=== PATIENT | male | born 1945 | race African-American/Black ===

== ENCOUNTER 2017-03-01 11:20 | Observation (INO) | payer OTHER ==
--- NOTE | 2017-03-01 11:45 | PDOC ---
History of Present Illness - General History Source: Patient, EMS, [facility] Records Exam Limitations: Other (very lethargic) - History of Present Illness Initial Comments: 03/01/17 13:02 The patient is a 71 year old male with past medical history of hypertension, hyperlipidemia, diabetes, CHF, depression and anxiety who arrives to the ED via EMS from [facility] with complaints of chest pain. As per detention, the patient had been complaining of persistent chest pain since this morning and refused to eat breakfast which is not typical of him. Their nurse practitioner had evaluated the patient and advised that he is brought to the ED. En route to the ED, the patient received a sublingual nitro and baby aspirin. No further history can be obtained. PCP: Elgin Desouza <Kaylee Romero - Last Filed: 03/01/17 19:01> <Padmini Franco - Last Filed: 03/01/17 20:22> <Brandon Mueller - Last Filed: 03/04/17 08:16> - General Chief Complaint: Chest Pain Stated Complaint: CHEST PAIN Time Seen by Provider: 03/01/17 11:45 Past History <Kaylee Romero - Last Filed: 03/01/17 19:01> <Padmini Franco - Last Filed: 03/01/17 20:22> - Past Medical History Diabetes: Yes GI Disorders: Yes (GERD) HTN: Yes Hypercholesterolemia: Yes Psychiatric Problems: Yes - Psycho/Social/Smoking Cessation Hx Suicidal Ideation: No Smoking History: Unknown if ever smoked <Brandon Mueller - Last Filed: 03/04/17 08:16> - Past Medical History Allergies/Adverse Reactions: Allergies Allergy/AdvReac Type Severity Reaction Status Date / Time No Known Allergies Allergy Verified 03/01/17 11:38 Home Medications: Ambulatory Orders Aspirin [ASA -] 81 mg PO DAILY 03/01/17 Bacitracin 28 gm TP BID 03/01/17 Carvedilol 12.5 mg PO DAILY 03/01/17 Citalopram Hydrobromide [Celexa -] 10 mg PO DAILY 03/01/17 Doxycycline Hyclate 100 mg PO BID 03/01/17 Furosemide [Lasix -] 40 mg PO DAILY 03/01/17 Insulin Glargine,Hum.rec.anlog [Lantus Solostar PEN (NF)] 14 units SQ HS Insulin Lispro [Humalog] 0 unit SQ ASDIR 03/01/17 Lorazepam [Ativan] 0.5 mg PO TID 03/01/17 Losartan Potassium 25 mg PO DAILY 03/01/17 Metformin HCl 500 mg PO BID 03/01/17 Nitroglycerin [Nitrostat] 0.4 mg SL ASDIR PRN 03/01/17 Pantoprazole Sodium [Protonix -] 20 mg PO DAILY 03/01/17 Quetiapine Fumarate [Seroquel -] 25 mg PO Q12H 03/01/17 Sitagliptin Phosphate [Januvia] 100 mg PO DAILY 03/01/17 Spironolactone 25 mg PO DAILY 03/01/17 Vitamin B Comp W-C [Nephro-Bernardo -] 1 tablet PO DAILY 03/01/17 Review of Systems - Review of Systems Able to Perform ROS?: Yes Comments:: 03/01/17 13:02 GENERAL/CONSTITUTIONAL: No fever or chills. No weakness. HEAD, EYES, EARS, NOSE AND THROAT: No change in vision. No ear pain or discharge. No sore throat. CARDIOVASCULAR: Present: chest pain No shortness of breath. RESPIRATORY: No cough, wheezing, or hemoptysis. GASTROINTESTINAL: No nausea, vomiting, diarrhea or constipation. GENITOURINARY: No dysuria, frequency, or change in urination. MUSCULOSKELETAL: No joint or muscle swelling or pain. No neck or back pain. SKIN: No rash NEUROLOGIC: No headache, vertigo, loss of consciousness, or change in strength/ sensation. ENDOCRINE: No increased thirst. No abnormal weight change. HEMATOLOGIC/LYMPHATIC: No anemia, easy bleeding, or history of blood clots. ALLERGIC/IMMUNOLOGIC: No hives or skin allergy. All Other Systems: Reviewed and Negative <Kaylee Romero - Last Filed: 03/01/17 19:01> *Physical Exam - Vital Signs Last Vital Signs Temp Pulse Resp BP Pulse Ox 97.6 F 87 18 131/82 100 03/01/17 11:32 03/01/17 11:32 03/01/17 11:32 03/01/17 11:32 03/01/17 11:32 - Physical Exam Comments: 03/01/17 13:03 GENERAL: Awake, alert, and fully oriented, in no acute distress HEAD: No signs of trauma EYES: PERRLA, EOMI, sclera anicteric, conjunctiva clear ENT: Auricles normal inspection, hearing grossly normal, nares patent, oropharynx clear without exudates. Moist mucosa NECK: Normal ROM, supple, no lymphadenopathy, JVD, or masses LUNGS: Breath sounds equal, clear to auscultation bilaterally. No wheezes, and no crackles HEART: Regular rate and rhythm, normal S1 and S2, II/ systolic ejection murmur , no rubs or gallops ABDOMEN: Soft, nontender, normoactive bowel sounds. No guarding, no rebound. No masses EXTREMITIES: Normal range of motion, no edema. No clubbing or cyanosis. No cords, erythema, or tenderness NEUROLOGICAL: Cranial nerves II through XII grossly intact. Multiple contractures, unable to asses gait. SKIN: Warm, Dry, normal turgor, no rashes or lesions noted. <Kaylee Romero - Last Filed: 03/01/17 19:01> - Vital Signs Last Vital Signs Temp Pulse Resp BP Pulse Ox 97.6 F 85 18 153/72 100 03/01/17 11:32 03/01/17 18:17 03/01/17 18:17 03/01/17 18:17 03/01/17 18:17 <Padmini Franco - Last Filed: 03/01/17 20:22> - Vital Signs Last Vital Signs Temp Pulse Resp BP Pulse Ox 97.6 F 87 18 131/82 100 03/01/17 11:32 03/01/17 11:32 03/01/17 11:32 03/01/17 11:32 03/01/17 11:32 <Brandon Mueller - Last Filed: 03/04/17 08:16> Heart Score/ECG Review - ECG Intrepretation Comment:: 03/01/17 13:04 ECG obtained at 11:31 Normal sinus at 88 bpm. Possible left atrial enlargment, left ventricular hypertrophy with repolarization abnormality. <Kaylee Romero - Last Filed: 03/01/17 19:01> ED Treatment Course - LABORATORY CBC & Chemistry Diagram: 03/01/17 12:13 03/01/17 12:13 - ADDITIONAL ORDERS Additional order review: Laboratory Results 03/01/17 12:13 B-Natriuretic Peptide Cancelled Lipase Cancelled 03/01/17 12:13 RBC 4.05 MCV 89.0 MCHC 32.8 RDW 15.0 MPV 9.1 Neutrophils % 59.6 Lymphocytes % 27.7 Monocytes % 11.4 H Eosinophils % 0.8 Basophils % 0.5 <Kaylee Romero - Last Filed: 03/01/17 19:01> - LABORATORY CBC & Chemistry Diagram: 03/01/17 12:13 03/01/17 12:13 - ADDITIONAL ORDERS Additional order review: Laboratory Results 03/01/17 03/01/17 03/01/17 18: 16:11 12:13 INR Sodium Potassium Chloride Carbon Dioxide Anion Gap BUN Creatinine Creat Clearance w eGFR Random Glucose Lactic Acid 1.8 Calcium Magnesium Total Bilirubin AST ALT Alkaline Phosphatase Creatine Kinase 174 Creatine Kinase Index 2.2 CK-MB (CK-2) 3.925 H Troponin I 0.07 H B-Natriuretic Peptide Total Protein Albumin Lipase Urine Color Ltyellow Urine Appearance Clear Urine pH 5.0 Urine Protein Negative Urine Glucose (UA) 3+ H Urine Ketones Negative Urine Blood Negative Urine Nitrite Negative Urine Bilirubin Negative Urine Urobilinogen Negative Ur Leukocyte Esterase Negative Blood Type Antibody Screen 03/01/17 03/01/17 03/01/17 12:13 12:13 12:13 INR Sodium 142 Potassium 5.0 Chloride 105 Carbon Dioxide 28 Anion Gap 9 BUN 18 Creatinine 1.1 Creat Clearance w eGFR > 60 Random Glucose 142 H Lactic Acid Calcium 9.3 Magnesium 2.1 Total Bilirubin 0.3 AST 24 ALT 21 Alkaline Phosphatase 68 Creatine Kinase 197 Creatine Kinase Index 1.7 CK-MB (CK-2) 3.409 Troponin I 0.07 H B-Natriuretic Peptide Cancelled 4907.13 H Total Protein 6.9 Albumin 3.2 L Lipase Cancelled Urine Color Urine Appearance Urine pH Urine Protein Urine Glucose (UA) Urine Ketones Urine Blood Urine Nitrite Urine Bilirubin Urine Urobilinogen Ur Leukocyte Esterase Blood Type O POSITIVE Antibody Screen Negative 03/01/17 12:13 INR 1.11 Sodium Potassium Chloride Carbon Dioxide Anion Gap BUN Creatinine Creat Clearance w eGFR Random Glucose Lactic Acid Calcium Magnesium Total Bilirubin AST ALT Alkaline Phosphatase Creatine Kinase Creatine Kinase Index CK-MB (CK-2) Troponin I B-Natriuretic Peptide Total Protein Albumin Lipase Urine Color Urine Appearance Urine pH Urine Protein Urine Glucose (UA) Urine Ketones Urine Blood Urine Nitrite Urine Bilirubin Urine Urobilinogen Ur Leukocyte Esterase Blood Type Antibody Screen 03/01/17 12:13 RBC 4.05 MCV 89.0 MCHC 32.8 RDW 15.0 MPV 9.1 Neutrophils % 59.6 Lymphocytes % 27.7 Monocytes % 11.4 H Eosinophils % 0.8 Basophils % 0.5 - Medications Given in the ED: ED Medications Discontinued Medications Generic Name Dose Route Start Last Admin Trade Name Laura PRN Reason Stop Dose Admin Acetaminophen 1,000 mg 03/01/17 15:44 03/01/17 16:05 Ofirmev Injection - IVPB 03/01/17 15:45 1,000 mg ONCE ONE Administration Aspirin 162 mg 03/01/17 12:01 03/01/17 12:56 Asa - PO 03/01/17 12:02 162 mg ONCE ONE Administration Sodium Chloride 500 mls @ 500 mls/hr 03/01/17 12:01 03/01/17 12:56 Normal Saline - IV 03/01/17 13:00 500 mls/hr ASDIR STA Administration Morphine Sulfate 2 mg 03/01/17 12:01 03/01/17 12:56 Morphine Injection - IVPUSH 03/01/17 12:02 2 mg ONCE ONE Administration <Padmini Franco - Last Filed: 03/01/17 20:22> - LABORATORY CBC & Chemistry Diagram: 03/02/17 07:35 03/02/17 07:35 <Brandon Mueller - Last Filed: 03/04/17 08:16> Medical Decision Making - Medical Decision Making 03/01/17 19:01 Phone call placed to patient's PCP, Dr. Desouza. Awaiting call back <Kaylee Romero - Last Filed: 03/01/17 19:01> - Medical Decision Making 03/01/17 20:19 Second call placed to Dr. Desouza. As per Dr. Desouza's office, Dr. Desou[facility]. <Padmini Franco - Last Filed: 03/01/17 20:22> *DC/Admit/Observation/Transfer - Attestations Scribe Attestion: 03/01/17 13:05 Documentation prepared by Kaylee Romero, acting as medical sales associate for Brandon Mueller DO. <Kaylee Romero - Last Filed: 03/01/17 19:01> <Padmini Franco - Last Filed: 03/01/17 20:22> - Attestations Physician Attestion: 03/01/17 11:45 I, Dr. Brandon Mueller, attest that this document has been prepared under my direction and personally reviewed by me in its entirety. I further attest, that it accurately reflects all work, treatment, procedures and medical decision -making performed by me. <Brandon Mueller - Last Filed: 03/04/17 08:16> Diagnosis at time of Disposition: Chest pain in adult - Referrals
[2017-03-01] MEDS ORDERED: SODIUM CHLORIDE 500 ML IV STA (12:01)
[2017-03-01] MEDS ORDERED: ASPIRIN 81 MG CHEWABLE TABLETS PO ONE (12:01)
[2017-03-01] MEDS ORDERED: NITROGLYCERIN SUBLINGUAL 1/150 0.4 MG TAB SL PRN (12:01)
[2017-03-01] MEDS ORDERED: morphine CARPU-JECT 4 MG/1 ML DISP.SYRIN IVPUSH ONE ×3 (12:01→23:56)
[2017-03-01 12:41] LABS: BASOPHIL 0.5 % (0-2.0); EOSINOPHIL 0.8 % (0-4.5); MCH 29.2 pg (25.7-33.7); MCHC 32.8 g/dl (32.0-35.9); MEAN PLT VOLUME 9.1 fl (7.5-11.1); NEUTROPHILS 59.6 % (42.8-82.8); PLATELET COUNT 160 K/MM3 (134-434)
[2017-03-01] MEDS ORDERED: ASPIRIN 81 MG CHEWABLE TABLETS ONE (12:45)
[2017-03-01] MEDS ORDERED: morphine CARPU-JECT 2 MG/1 ML DISP.SYRIN ONE ×2 (12:45→20:45)
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
[2017-03-01 13:11] LABS: INR 1.11 (0.82-1.09); PROTHROMBIN TIME (PATIENT) 12.2 SEC (9.98-11.88)
--- NOTE | 2017-03-01 13:37 | EKG ---
Test Reason : Blood Pressure : / mmHG Vent. Rate : 088 BPM Atrial Rate : 088 BPM P-R Int : 136 ms QRS Dur : 088 ms QT Int : 372 ms P-R-T Axes : 063 032 201 degrees QTc Int : 450 ms NORMAL SINUS RHYTHM POSSIBLE LEFT ATRIAL ENLARGEMENT LEFT VENTRICULAR HYPERTROPHY WITH REPOLARIZATION ABNORMALITY ABNORMAL ECG NO PREVIOUS ECGS AVAILABLE Confirmed by RANJIT CADE MD ([id number]) on 03/01/2017 1:36:36 PM Referred By: Confirmed By:RANJIT CADE MD
[2017-03-01 14:57] LABS: ALBUMIN 3.2 g/dl (3.4-5.0); ANION GAP 9 (8-16); BILIRUBIN,TOTAL 0.3 mg/dL (0.2-1.0); CALCIUM 9.3 mg/dL (8.5-10.1); CO2 28 mmol/L (21-32); CREATININE 1.1 mg/dL (0.7-1.3); GLUCOSE,RANDOM 142 mg/dL (74-106); MAGNESIUM 2.1 mg/dL (1.8-2.4); SGOT/AST 24 U/L (15-37); SGPT/ALT 21 U/L (12-78); TOT PROT 6.9 g/dl (6.4-8.2)
[2017-03-01 15:01] LABS: ALK PHOS 68 U/L (45-117); CPK 197 IU/L (39-308); TROPONIN I 0.07 ng/ml (0.00-0.05)
[2017-03-01] MEDS ORDERED: ACETAMINOPHEN 1000 MG/100 ML VIAL (NON FORMULARY) IVPB ONE (15:44)
[2017-03-01] MEDS ORDERED: ACETAMINOPHEN INJECTION 100 ML IVPB ONE (15:48)
[2017-03-01 16:25] LABS: URINE APPEARANCE CLEAR; URINE BILIRUBIN NEGATIVE (NEGATIVE); URINE BLOOD NEGATIVE (NEGATIVE); URINE COLOR LTYELLOW; URINE GLUCOSE (UA) 3+ (NEGATIVE); URINE KETONE NEGATIVE (NEGATIVE); URINE LEUK ESTERASE NEGATIVE (NEGATIVE); URINE NITRITE NEGATIVE (NEGATIVE); URINE PROTEIN NEGATIVE (NEGATIVE); URINE UROBILINOGEN NEGATIVE mg/dL (0.2-1.0)
[2017-03-01 18:58] LABS: TROPONIN I 0.07 ng/ml (0.00-0.05)
--- NOTE | 2017-03-01 21:27 | HP ---
CHIEF COMPLAINT: Chest Pain PCP: Dr. Pj Desouza HISTORY OF PRESENT ILLNESS: This is a 71 y/o man with a past medical history of HTN, HLD, DM, CHF, Depression, Anxiety, Dementia (per [place] records). Who presents to the ED from the [facility] for chest pain since Thursday am. Patient has Dementia unable to provide HPI. Per ED record: As per senior living, the patient had been complaining of persistent chest pain since this morning and refused to eat breakfast which is not typical of him. Their nurse practitioner had evaluated the patient and advised that he is brought to the ED. En route to the ED, the patient received a sublingual nitro and baby aspirin. No further history can be obtained. ER course was notable for: (1) Trop I- 0.07 (2) EKG- NSR possible left atrial enlargement, LVH, with repolarization abnormality (3) BNP- 4900 Recent Travel: None PAST MEDICAL HISTORY: See HPI PAST SURGICAL HISTORY: Social History: Smoking: Unknown Alcohol: Unknown Drugs: Unknown Resides at [facility] Family History: Unable to obtain Allergies No Known Allergies Allergy (Verified 03/01/17 11:38) HOME MEDICATIONS: Home Medications Medication Instructions Recorded Aspirin [ASA -] 81 mg PO DAILY 03/01/17 Bacitracin 28 gm TP BID 03/01/17 Carvedilol 12.5 mg PO DAILY 03/01/17 Citalopram Hydrobromide [Celexa -] 10 mg PO DAILY 03/01/17 Doxycycline Hyclate 100 mg PO BID 03/01/17 Furosemide [Lasix -] 40 mg PO DAILY 03/01/17 Insulin Glargine,Hum.rec.anlog 14 units SQ HS 03/01/17 [Lantus Solostar PEN (NF)] Insulin Lispro [Humalog] 0 unit SQ ASDIR 03/01/17 Lorazepam [Ativan] 0.5 mg PO TID 03/01/17 Losartan Potassium 25 mg PO DAILY 03/01/17 Metformin HCl 500 mg PO BID 03/01/17 Nitroglycerin [Nitrostat] 0.4 mg SL ASDIR PRN 03/01/17 Pantoprazole Sodium [Protonix -] 20 mg PO DAILY 03/01/17 Quetiapine Fumarate [Seroquel -] 25 mg PO BID 03/01/17 Sitagliptin Phosphate [Januvia] 100 mg PO DAILY 03/01/17 Spironolactone 25 mg PO DAILY 03/01/17 Vitamin B Comp W-C [Nephro-Bernardo -] 1 tablet PO DAILY 03/01/17 REVIEW OF SYSTEMS Unable to perform CONSTITUTIONAL: Absent: fever, chills, diaphoresis, generalized weakness, malaise, loss of appetite, weight change HEENT: Absent: rhinorrhea, nasal congestion, throat pain, throat swelling, difficulty swallowing, mouth swelling, ear pain, eye pain, visual changes CARDIOVASCULAR: Absent: chest pain, syncope, palpitations, irregular heart rate, lightheadedness , peripheral edema RESPIRATORY: Absent: cough, shortness of breath, dyspnea with exertion, orthopnea, wheezing, stridor, hemoptysis GASTROINTESTINAL: Absent: abdominal pain, abdominal distension, nausea, vomiting, diarrhea, constipation, melena, hematochezia GENITOURINARY: Absent: dysuria, frequency, urgency, hesitancy, hematuria, flank pain, genital pain MUSCULOSKELETAL: Absent: myalgia, arthralgia, joint swelling, back pain, neck pain SKIN: Absent: rash, itching, pallor HEMATOLOGIC/IMMUNOLOGIC: Absent: easy bleeding, easy bruising, lymphadenopathy, frequent infections ENDOCRINE: Absent: unexplained weight gain, unexplained weight loss, heat intolerance, cold intolerance NEUROLOGIC: Absent: headache, focal weakness or paresthesias, dizziness, unsteady gait, seizure, mental status changes, bladder or bowel incontinence PSYCHIATRIC: Absent: anxiety, depression, suicidal or homicidal ideation, hallucinations. PHYSICAL EXAMINATION Vital Signs - 24 hr 03/01/17 03/01/17 03/01/17 11:32 15:11 18:17 Temperature 97.6 F Pulse Rate 87 Pulse Rate [ 88 85 Right Radial] Respiratory 18 18 18 Rate Blood Pressure 131/82 Blood Pressure 149/70 153/72 [Left Arm] O2 Sat by Pulse 100 100 100 Oximetry (%) GENERAL: Lethargic, oriented to name only, in no acute distress. HEAD: Normal with no signs of trauma. EYES: Pupils equal, round and reactive to light, extraocular movements intact, sclera anicteric, conjunctiva clear. No lid lag. EARS, NOSE, THROAT: Ears normal, nares patent, oropharynx clear without exudates. Dry mucous membranes. NECK: Normal range of motion, supple without lymphadenopathy, JVD, or masses. LUNGS: Breath sounds equal, clear to auscultation bilaterally. No wheezes, and no crackles. No accessory muscle use. HEART: Regular rate and rhythm, normal S1 and S2 without murmur, rub or gallop. ABDOMEN: Soft, nontender, not distended, normoactive bowel sounds, no guarding, no rebound, no masses. No hepatomegaly or splenomegaly. MUSCULOSKELETAL: Normal range of motion at all joints. No bony deformities or tenderness. No CVA tenderness. UPPER EXTREMITIES: 2+ pulses, warm, well-perfused. No cyanosis. No clubbing. No peripheral edema. LOWER EXTREMITIES: 2+ pulses, warm, well-perfused. No calf tenderness. No peripheral edema. NEUROLOGICAL: Cranial nerves II-XII intact. Normal speech. Gait not observed. PSYCHIATRIC: Cooperative. Limited eye contact. Appropriate mood and affect. SKIN: Warm, dry, normal turgor, no rashes, normal capillary refill. scabbed lesions to lower legs noted Laboratory Results - last 24 hr 03/01/17 03/01/17 03/01/17 12:13 12:13 12:13 WBC 7.0 RBC 4.05 Hgb 11.8 Hct 36.1 MCV 89.0 MCH 29.2 MCHC 32.8 RDW 15.0 Plt Count 160 MPV 9.1 Neutrophils % 59.6 Lymphocytes % 27.7 Monocytes % 11.4 H Eosinophils % 0.8 Basophils % 0.5 INR 1.11 Sodium 142 Potassium 5.0 Chloride 105 Carbon Dioxide 28 Anion Gap 9 BUN 18 Creatinine 1.1 Creat Clearance w eGFR > 60 Random Glucose 142 H Lactic Acid Calcium 9.3 Magnesium 2.1 Total Bilirubin 0.3 AST 24 ALT 21 Alkaline Phosphatase 68 Creatine Kinase 197 Creatine Kinase Index 1.7 CK-MB (CK-2) 3.409 Troponin I 0.07 H B-Natriuretic Peptide 4907.13 H Total Protein 6.9 Albumin 3.2 L Lipase Urine Color Urine Appearance Urine pH Ur Specific [place] Urine Protein Urine Glucose (UA) Urine Ketones Urine Blood Urine Nitrite Urine Bilirubin Urine Urobilinogen Ur Leukocyte Esterase Blood Type Antibody Screen 03/01/17 03/01/17 03/01/17 12:13 12:13 12:13 WBC RBC Hgb Hct MCV MCH MCHC RDW Plt Count MPV Neutrophils % Lymphocytes % Monocytes % Eosinophils % Basophils % INR Sodium Potassium Chloride Carbon Dioxide Anion Gap BUN Creatinine Creat Clearance w eGFR Random Glucose Lactic Acid 1.8 Calcium Magnesium Total Bilirubin AST ALT Alkaline Phosphatase Creatine Kinase Creatine Kinase Index CK-MB (CK-2) Troponin I B-Natriuretic Peptide Cancelled Total Protein Albumin Lipase Cancelled Urine Color Urine Appearance Urine pH Ur Specific [place] Urine Protein Urine Glucose (UA) Urine Ketones Urine Blood Urine Nitrite Urine Bilirubin Urine Urobilinogen Ur Leukocyte Esterase Blood Type O POSITIVE Antibody Screen Negative 03/01/17 03/01/17 16:11 18:17 WBC RBC Hgb Hct MCV MCH MCHC RDW Plt Count MPV Neutrophils % Lymphocytes % Monocytes % Eosinophils % Basophils % INR Sodium Potassium Chloride Carbon Dioxide Anion Gap BUN Creatinine Creat Clearance w eGFR Random Glucose Lactic Acid Calcium Magnesium Total Bilirubin AST ALT Alkaline Phosphatase Creatine Kinase 174 Creatine Kinase Index 2.2 CK-MB (CK-2) 3.925 H Troponin I 0.07 H B-Natriuretic Peptide Total Protein Albumin Lipase Urine Color Ltyellow Urine Appearance Clear Urine pH 5.0 Ur Specific [place] 1.025 Urine Protein Negative Urine Glucose (UA) 3+ H Urine Ketones Negative Urine Blood Negative Urine Nitrite Negative Urine Bilirubin Negative Urine Urobilinogen Negative Ur Leukocyte Esterase Negative Blood Type Antibody Screen Heart Score/ECG Review - ECG Intrepretation Comment:: 03/01/17 13:04 ECG obtained at 11:31 Normal sinus at 88 bpm. Possible left atrial enlargment, left ventricular hypertrophy with repolarization abnormality. - RADIOLOGY Chest X-Ray Result: Other (No acute pathology) Radiograph Interpretation: 03/01/17 13:51 [id number] RAD/CHEST X-RAY PORTABLE* Chest: Chest pain A single view the chest reveals scoliosis with convexity to the right, elevated left hemidiaphragm , unfolded ascending and descending aorta, normal justen and prominent heart. The lungs are clear. The angles are sharp. Acute chest process is not seen. There are no prior studies for comparison. Impression : No acute pathology. See discussion above. ASSESSMENT/PLAN: This is a 71 y/o male with a PMHx of: HTN, CHF, HLD, DM, Depression, Anxiety. Placed in Tele Observation for Chest Pain r/o ACS for further evaluation of their emergent condition. Impression: 1. Chest Pain r/o ACS - Per senior living records, patient has Dementia hx - Cardiac Monitoring - HEART Score 6 - EKG- reviewed, no avail study to compare - Serial Enzymes, sets x2 mildly elevated - Appreciate Cardiology Consult - Asa, NTG sl given by EMS - Continue Asa, BB with parameters - NTG prn - Echo- check LVSF 2. Hypertension - Controlled - Continue home meds - Monitor renal function 3. CHF - Stable - Chest Xray- no acute pathology - BNP 4900, no avail data to compare - Continue Lasix - Monitor BMP - Monitor vitals - O2 prn 4. Diabetes Mellitus - BGMs - ISS - Will hold home meds for now secondary to elevated LA 5. HLD - Lipid Panel in am - Will start low dose statin - Monitor LFTs 6. Anxiety and Depression - Continue home meds - Fall Precautions 7. Abnormal Lab Result - Per lab result from the senior living, + urine culture >100,000 MRSA positive - Patient was started on Doxycycline per JENNIFER - Placed on Contact Precautions - Urinalysis obtained - Urine Culture-pending - Will continue Doxycycline 8. DVT Prophylaxis - SCDs - Lovenox SQ Requires Inpatient Care Problem List - Problem (1) Chest pain Code(s): R07.9 - CHEST PAIN, UNSPECIFIED (2) CHF (congestive heart failure) Code(s): I50.9 - HEART FAILURE, UNSPECIFIED (3) HTN (hypertension) Code(s): I10 - ESSENTIAL (PRIMARY) HYPERTENSION (4) HLD (hyperlipidemia) Code(s): E78.5 - HYPERLIPIDEMIA, UNSPECIFIED (5) Diabetes mellitus Code(s): E11.9 - TYPE 2 DIABETES MELLITUS WITHOUT COMPLICATIONS (6) Depression Code(s): F32.9 - MAJOR DEPRESSIVE DISORDER, SINGLE EPISODE, UNSPECIFIED (7) Anxiety Code(s): F41.9 - ANXIETY DISORDER, UNSPECIFIED (8) DVT prophylaxis Code(s): RHC2301 - Visit type - Emergency Visit Emergency Visit: Yes ED Registration Date: 03/01/17 Care time: The patient presented to the Emergency Department on the above date and was hospitalized for further evaluation of their emergent condition. - New Patient This patient is new to me today: Yes Date on this admission: 03/01/17 - Critical Care Critical Care patient: No
[2017-03-02] MEDS ORDERED: morphine CARPU-JECT 10 MG/1 ML DISP.SYRIN ONE (00:17)
[2017-03-02 01:11] LABS: TROPONIN I 0.06 ng/ml (0.00-0.05)
[2017-03-02] MEDS: INSULIN SLIDING SCALE (NOVOLOG) 1 VIAL SQ SCH ×4 (06:32→21:10)
[2017-03-02 07:49] LABS: BASOPHIL 0.4 % (0-2.0); EOSINOPHIL 1.3 % (0-4.5); MCH 29.6 pg (25.7-33.7); MCHC 33.5 g/dl (32.0-35.9); MEAN CELL VOLUME 88.4 fl (80-96); MEAN PLT VOLUME 8.8 fl (7.5-11.1); PLATELET COUNT 155 K/MM3 (134-434); WHITE BLOOD COUNT 6.8 K/mm3 (4.0-10.0)
[2017-03-02 08:19] LABS: ANION GAP 5 (8-16); CALCIUM 9.1 mg/dL (8.5-10.1); CO2 32 mmol/L (21-32); CREATININE 1.1 mg/dL (0.7-1.3); GLUCOSE,RANDOM 204 mg/dL (74-106); MAGNESIUM 2.1 mg/dL (1.8-2.4); PHOSPHOROUS 3.4 mg/dL (2.5-4.9)
--- NOTE | 2017-03-02 10:06 | PN ---
Progress Note (short form) - Note Progress Note: This is a 71 y/o man with a past medical history of HTN, HLD, DM, CHF, Depression, Anxiety, Dementia (per [place] records). Who presents to the ED from the [facility] for chest pain since Thursday am. Patient has Dementia unable to provide HPI. Patient seen and examined. present by the bedside. C/O Pain on the anterior aspect of the chest wall. No associated shortness of breath, palpitation or dizziness. ER course was notable for: (1) Trop I- 0.07 (2) EKG- NSR possible left atrial enlargement, LVH, with repolarization abnormality (3) BNP- 4900 Recent Travel: None PAST MEDICAL HISTORY: See HPI PAST SURGICAL HISTORY: Social History: Smoking: Unknown Alcohol: Unknown Drugs: Unknown [facility]ides [facility] Family History: Unable to obtain Allergies No Known Allergies Allergy (Verified 03/01/17 11:38) HOME MEDICATIONS: Home Medications Medication Instructions Recorded Aspirin [ASA -] 81 mg PO DAILY 03/01/17 Bacitracin 28 gm TP BID 03/01/17 Carvedilol 12.5 mg PO DAILY 03/01/17 Citalopram Hydrobromide [Celexa -] 10 mg PO DAILY 03/01/17 Doxycycline Hyclate 100 mg PO BID 03/01/17 Furosemide [Lasix -] 40 mg PO DAILY 03/01/17 Insulin Glargine,Hum.rec.anlog 14 units SQ HS 03/01/17 [Lantus Solostar PEN (NF)] Insulin Lispro [Humalog] 0 unit SQ ASDIR 03/01/17 Lorazepam [Ativan] 0.5 mg PO TID 03/01/17 Losartan Potassium 25 mg PO DAILY 03/01/17 Metformin HCl 500 mg PO BID 03/01/17 Nitroglycerin [Nitrostat] 0.4 mg SL ASDIR PRN 03/01/17 Pantoprazole Sodium [Protonix -] 20 mg PO DAILY 03/01/17 Quetiapine Fumarate [Seroquel -] 25 mg PO BID 03/01/17 Sitagliptin Phosphate [Januvia] 100 mg PO DAILY 03/01/17 Spironolactone 25 mg PO DAILY 03/01/17 Vitamin B Comp W-C [Nephro-Bernardo -] 1 tablet PO DAILY 03/01/17 REVIEW OF SYSTEMS Unable to perform CONSTITUTIONAL: Absent: fever, chills, diaphoresis, generalized weakness, malaise, loss of appetite, weight change HEENT: Absent: rhinorrhea, nasal congestion, throat pain, throat swelling, difficulty swallowing, mouth swelling, ear pain, eye pain, visual changes CARDIOVASCULAR: Absent: chest pain, syncope, palpitations, irregular heart rate, lightheadedness , peripheral edema RESPIRATORY: Absent: cough, shortness of breath, dyspnea with exertion, orthopnea, wheezing, stridor, hemoptysis GASTROINTESTINAL: Absent: abdominal pain, abdominal distension, nausea, vomiting, diarrhea, constipation, melena, hematochezia GENITOURINARY: Absent: dysuria, frequency, urgency, hesitancy, hematuria, flank pain, genital pain MUSCULOSKELETAL: Absent: myalgia, arthralgia, joint swelling, back pain, neck pain SKIN: Absent: rash, itching, pallor HEMATOLOGIC/IMMUNOLOGIC: Absent: easy bleeding, easy bruising, lymphadenopathy, frequent infections ENDOCRINE: Absent: unexplained weight gain, unexplained weight loss, heat intolerance, cold intolerance NEUROLOGIC: Absent: headache, focal weakness or paresthesias, dizziness, unsteady gait, seizure, mental status changes, bladder or bowel incontinence PSYCHIATRIC: Absent: anxiety, depression, suicidal or homicidal ideation, hallucinations. PHYSICAL EXAMINATION Vital Signs Period Temp Pulse Resp BP Sys/Hoskins Pulse Ox Last 24 Hr 97.6 F-98.6 F 85-98 14-22 130-156/70-87 97-100 GENERAL: Lethargic, oriented to name only, in no acute distress. HEAD: Normal with no signs of trauma. EYES: Pupils equal, round and reactive to light, extraocular movements intact, sclera anicteric, conjunctiva clear. No lid lag. EARS, NOSE, THROAT: Ears normal, nares patent, oropharynx clear without exudates. Dry mucous membranes. NECK: Normal range of motion, supple without lymphadenopathy, JVD, or masses. LUNGS: Breath sounds equal, clear to auscultation bilaterally. No wheezes, and no crackles. No accessory muscle use. HEART: Regular rate and rhythm, normal S1 and S2 without murmur, rub or gallop. ABDOMEN: Soft, nontender, not distended, normoactive bowel sounds, no guarding, no rebound, no masses. No hepatomegaly or splenomegaly. MUSCULOSKELETAL: Normal range of motion at all joints. No bony deformities or tenderness. No CVA tenderness. UPPER EXTREMITIES: 2+ pulses, warm, well-perfused. No cyanosis. No clubbing. No peripheral edema. LOWER EXTREMITIES: 2+ pulses, warm, well-perfused. No calf tenderness. No peripheral edema. NEUROLOGICAL: Cranial nerves II-XII intact. Normal speech. Gait not observed. PSYCHIATRIC: Cooperative. Limited eye contact. Appropriate mood and affect. SKIN: Warm, dry, normal turgor, no rashes, normal capillary refill. scabbed lesions to lower legs noted CBC, BMP 03/02/17 07:35 03/02/17 07:35 Heart Score/ECG Review - ECG Intrepretation Comment:: 03/01/17 13:04 ECG obtained at 11:31 Normal sinus at 88 bpm. Possible left atrial enlargment, left ventricular hypertrophy with repolarization abnormality. - RADIOLOGY Chest X-Ray Result: Other (No acute pathology) Radiograph Interpretation: 03/01/17 13:51 [id number] RAD/CHEST X-RAY PORTABLE* Chest: Chest pain A single view the chest reveals scoliosis with convexity to the right, elevated left hemidiaphragm , unfolded ascending and descending aorta, normal justen and prominent heart. The lungs are clear. The angles are sharp. Acute chest process is not seen. There are no prior studies for comparison. Impression : No acute pathology. See discussion above. CTA: Left lateral 5th/6th acute fracture. 5 mm pulmonary nodule. ASSESSMENT/PLAN: This is a 71 y/o male with a PMHx of: HTN, CHF, HLD, DM, Depression, Anxiety. Placed in Tele Observation for Chest Pain r/o ACS for further evaluation of their emergent condition. Impression: 1. Chest Pain r/o ACS - Per [facility] records, patient has Dementia hx - Cardiac Monitoring - HEART Score 6 - EKG- reviewed, no avail study to compare - Serial Enzymes, sets x2 mildly elevated - Appreciate Cardiology Consult - Asa, NTG sl given by EMS - Continue Asa, BB with parameters - NTG prn - Echo- check LVSF - Awaiting cardiology follow up. - Left lateral 5th/6th acute fracture - H/O frequent falls. Pain could be Musculo-skeletal in nature 2. Hypertension - Controlled - Continue home meds - Monitor renal function 3. CHF - Stable - Chest Xray- no acute pathology - BNP 4900, no avail data to compare - Continue Lasix - Monitor BMP - Monitor vitals - O2 prn 4. Diabetes Mellitus - BGMs - ISS - a1c 10.1 - Patienty was on metformin 500 mg BID and januvia 100 mg daily. Held since admission. - Restart metformin 500 mg BID. - Endocrinology consulted. 5. HLD - Lipid Panel in am - Will start low dose statin - Monitor LFTs 6. Anxiety and Depression - Continue home meds - Fall Precautions 7. Abnormal Lab Result - Per lab result from the [facility], + urine culture >100,000 MRSA positive - Patient was started on Doxycycline per JENNIFER - Placed on Contact Precautions - Urinalysis obtained - Urine Culture-pending - Will continue Doxycycline 8. DVT Prophylaxis - SCDs - Lovenox SQ 9. Pulmonary nodule 5 mm left lobe Follow up CT scan in 6 months. 10. Acute left 5th/6th rib fracture. Could be the cause of chest pain if acs ruled out. tylenol prn. Requires Inpatient Care Case discussed in detail with . Will wait for cardiology input.
--- NOTE | 2017-03-02 10:30 | CONSULT ---
Consult - text type - Consultation Consultation Note: Cardiology atypical symptoms borderline troponins evaluate for CAD Echocardiogram nuclear stress test, if he can
[2017-03-02 11:04] VITALS: BMI 20.9
[2017-03-02] MEDS ORDERED: CITALOPRAM HYDROBROMIDE 10 MG TABLET (FP) ONE (11:38)
[2017-03-02] MEDS: ASPIRIN 81 MG CHEWABLE TABLETS PO SCH (11:46)
[2017-03-02] MEDS: SPIRONOLACTONE 25 MG TABLET (FP) PO SCH (11:46)
[2017-03-02] MEDS: FUROSEMIDE 40 MG TABLET (FP) PO SCH (11:47)
[2017-03-02] MEDS: LOSARTAN POTASSIUM 25 MG TABLET PO SCH (11:47)
[2017-03-02] MEDS: VITAMIN B COMP W-C 1 EA TABLET PO SCH (11:47)
[2017-03-02] MEDS: CITALOPRAM HYDROBROMIDE 10 MG TABLET (FP) PO SCH (11:47)
[2017-03-02] MEDS: ENOXAPARIN NA (PORCINE) 40 MG/0.4 ML DISP.SYRIN SQ SCH (11:47)
[2017-03-02] MEDS: PANTOPRAZOLE 20 MG TABLET (FP) PO SCH (11:47)
[2017-03-02] MEDS: BACITRACIN 15 GM TUBE TOPICAL OINTMENT TP SCH ×2 (11:47→21:10)
[2017-03-02] MEDS: QUEtiapine FUMARATE 25 MG TABLET (FP) PO SCH ×2 (11:48→21:10)
[2017-03-02] MEDS: DOXYCYCLINE HYCLATE 100 MG CAPSULE PO SCH ×2 (11:48→21:10)
[2017-03-02] MEDS ORDERED: metFORMIN HCL 500 MG TABLET (FP) ONE (17:56)
[2017-03-02] MEDS: metFORMIN HCL 500 MG TABLET (FP) PO SCH (18:00)
--- NOTE | 2017-03-02 18:26 | CONSULT ---
Consult - text type - Consultation Consultation Note: Cardiology 71 y/o man with a past medical history of HTN, HLD, DM, CHF, Depression, Anxiety , Dementia (per [place] records). Who presents to the ED from the [facility] for chest pain since Thursday am. Patient has Dementia unable to provide HPI. PE: vitals stable febrile mild HTN normal cardio-pulmonary exam abdomen soft no leg edema Impression: Echo mild LV dysfn, mod AR troponins 0.6; 0.[address] depression T inversions acute coronary syndrome can not be ruled out, but to several medical-mental conditions, will treat medically No evidence of CHF, even though BNP raised Rec: observe repeat troponins fever etiology will follow continue current meds mild diuresis
[2017-03-02] MEDS: ATORVASTATIN CA 10 MG TABLET (FP) PO SCH (21:10)
[2017-03-03] MEDS: metFORMIN HCL 500 MG TABLET (FP) PO SCH ×2 (06:28→17:24)
[2017-03-03] MEDS: INSULIN SLIDING SCALE (NOVOLOG) 1 VIAL SQ SCH ×4 (06:29→22:21)
[2017-03-03] MEDS ORDERED: PT OWN MED DRAWER 7, Y5N ONE ×2 (10:06→10:40)
[2017-03-03] MEDS: ENOXAPARIN NA (PORCINE) 40 MG/0.4 ML DISP.SYRIN SQ SCH (10:17)
[2017-03-03] MEDS: SPIRONOLACTONE 25 MG TABLET (FP) PO SCH (10:18)
[2017-03-03] MEDS: PANTOPRAZOLE 20 MG TABLET (FP) PO SCH (10:18)
[2017-03-03] MEDS: QUEtiapine FUMARATE 25 MG TABLET (FP) PO SCH ×2 (10:18→22:20)
[2017-03-03] MEDS: DOXYCYCLINE HYCLATE 100 MG CAPSULE PO SCH (10:18)
[2017-03-03] MEDS: VITAMIN B COMP W-C 1 EA TABLET PO SCH (10:18)
[2017-03-03] MEDS: ASPIRIN 81 MG CHEWABLE TABLETS PO SCH (10:18)
[2017-03-03] MEDS: CITALOPRAM HYDROBROMIDE 10 MG TABLET (FP) PO SCH (10:18)
[2017-03-03] MEDS: FUROSEMIDE 40 MG TABLET (FP) PO SCH (10:18)
[2017-03-03] MEDS: LOSARTAN POTASSIUM 25 MG TABLET PO SCH (10:18)
[2017-03-03] MEDS: BACITRACIN 15 GM TUBE TOPICAL OINTMENT TP SCH ×2 (10:25→22:21)
--- NOTE | 2017-03-03 15:42 | PN ---
Progress Note (short form) - Note Progress Note: Patient seen and examined. Still c/o anterior chest wall pain. Laying flat in bed. In no acute respiratory distress Denies shortness of breath, palpitation or dizziness. PAST MEDICAL HISTORY: See HPI PAST SURGICAL HISTORY: Social History: Smoking: Unknown Alcohol: Unknown Drugs: Unknown [facility]ides at [facility] Family History: Unable to obtain Allergies No Known Allergies Allergy (Verified 03/01/17 11:38) HOME MEDICATIONS: Home Medications Medication Instructions Recorded Aspirin [ASA -] 81 mg PO DAILY 03/01/17 Bacitracin 28 gm TP BID 03/01/17 Carvedilol 12.5 mg PO DAILY 03/01/17 Citalopram Hydrobromide [Celexa -] 10 mg PO DAILY 03/01/17 Doxycycline Hyclate 100 mg PO BID 03/01/17 Furosemide [Lasix -] 40 mg PO DAILY 03/01/17 Insulin Glargine,Hum.rec.anlog 14 units SQ HS 03/01/17 [Lantus Solostar PEN (NF)] Insulin Lispro [Humalog] 0 unit SQ ASDIR 03/01/17 Lorazepam [Ativan] 0.5 mg PO TID 03/01/17 Losartan Potassium 25 mg PO DAILY 03/01/17 Metformin HCl 500 mg PO BID 03/01/17 Nitroglycerin [Nitrostat] 0.4 mg SL ASDIR PRN 03/01/17 Pantoprazole Sodium [Protonix -] 20 mg PO DAILY 03/01/17 Quetiapine Fumarate [Seroquel -] 25 mg PO BID 03/01/17 Sitagliptin Phosphate [Januvia] 100 mg PO DAILY 03/01/17 Spironolactone 25 mg PO DAILY 03/01/17 Vitamin B Comp W-C [Nephro-Bernardo -] 1 tablet PO DAILY 03/01/17 REVIEW OF SYSTEMS Unable to perform CONSTITUTIONAL: Absent: fever, chills, diaphoresis, generalized weakness, malaise, loss of appetite, weight change HEENT: Absent: rhinorrhea, nasal congestion, throat pain, throat swelling, difficulty swallowing, mouth swelling, ear pain, eye pain, visual changes CARDIOVASCULAR: Absent: chest pain, syncope, palpitations, irregular heart rate, lightheadedness , peripheral edema RESPIRATORY: Absent: cough, shortness of breath, dyspnea with exertion, orthopnea, wheezing, stridor, hemoptysis GASTROINTESTINAL: Absent: abdominal pain, abdominal distension, nausea, vomiting, diarrhea, constipation, melena, hematochezia GENITOURINARY: Absent: dysuria, frequency, urgency, hesitancy, hematuria, flank pain, genital pain MUSCULOSKELETAL: Absent: myalgia, arthralgia, joint swelling, back pain, neck pain SKIN: Absent: rash, itching, pallor HEMATOLOGIC/IMMUNOLOGIC: Absent: easy bleeding, easy bruising, lymphadenopathy, frequent infections ENDOCRINE: Absent: unexplained weight gain, unexplained weight loss, heat intolerance, cold intolerance NEUROLOGIC: Absent: headache, focal weakness or paresthesias, dizziness, unsteady gait, seizure, mental status changes, bladder or bowel incontinence PSYCHIATRIC: Absent: anxiety, depression, suicidal or homicidal ideation, hallucinations. PHYSICAL EXAMINATION Vital Signs Period Temp Pulse Resp BP Sys/Hoskins Pulse Ox Last 24 Hr 97.7 F-98.3 F 89-100 16-20 126-158/68-91 98-100 GENERAL: Lethargic, oriented to name only, in no acute distress. HEAD: Normal with no signs of trauma. EYES: Pupils equal, round and reactive to light, extraocular movements intact, sclera anicteric, conjunctiva clear. No lid lag. EARS, NOSE, THROAT: Ears normal, nares patent, oropharynx clear without exudates. Dry mucous membranes. NECK: Normal range of motion, supple without lymphadenopathy, JVD, or masses. LUNGS: Breath sounds equal, clear to auscultation bilaterally. No wheezes, and no crackles. No accessory muscle use. HEART: Regular rate and rhythm, normal S1 and S2 without murmur, rub or gallop. ABDOMEN: Soft, nontender, not distended, normoactive bowel sounds, no guarding, no rebound, no masses. No hepatomegaly or splenomegaly. MUSCULOSKELETAL: Normal range of motion at all joints. No bony deformities or tenderness. No CVA tenderness. UPPER EXTREMITIES: 2+ pulses, warm, well-perfused. No cyanosis. No clubbing. No peripheral edema. LOWER EXTREMITIES: 2+ pulses, warm, well-perfused. No calf tenderness. No peripheral edema. NEUROLOGICAL: Cranial nerves II-XII intact. Normal speech. Gait not observed. PSYCHIATRIC: Cooperative. Limited eye contact. Appropriate mood and affect. SKIN: Warm, dry, normal turgor, no rashes, normal capillary refill. scabbed lesions to lower legs noted CBC, BMP 03/02/17 07:35 03/02/17 07:35 Heart Score/ECG Review - ECG Intrepretation Comment:: 03/01/17 13:04 ECG obtained at 11:31 Normal sinus at 88 bpm. Possible left atrial enlargment, left ventricular hypertrophy with repolarization abnormality. - RADIOLOGY Chest X-Ray Result: Other (No acute pathology) Radiograph Interpretation: 03/01/17 13:51 [id number] RAD/CHEST X-RAY PORTABLE* Chest: Chest pain A single view the chest reveals scoliosis with convexity to the right, elevated left hemidiaphragm , unfolded ascending and descending aorta, normal justen and prominent heart. The lungs are clear. The angles are sharp. Acute chest process is not seen. There are no prior studies for comparison. Impression : No acute pathology. See discussion above. CTA: Left lateral 5th/6th acute fracture. 5 mm pulmonary nodule. ASSESSMENT/PLAN: This is a 71 y/o male with a PMHx of: HTN, CHF, HLD, DM, Depression, Anxiety. Placed in Tele Observation for Chest Pain r/o ACS for further evaluation of their emergent condition. Impression: 1. Chest Pain r/o ACS - Cardiac Monitoring - Serial Enzymes, sets x3 mildly elevated - Cardiology Consult appreciated - Continue Asa, BB with parameters - NTG prn - Echo- Normal LV function. 2. Hypertension - Controlled - Continue home meds - Monitor renal function 3. CHF - Stable - Chest Xray- no acute pathology - BNP 4900, no avail data to compare - Continue Lasix - Monitor BMP - Monitor vitals - O2 prn 4. Diabetes Mellitus - BGMs - ISS - a1c 10.1 - Increase metformin 1000 mg BID. - Endocrinology consulted. 5. Hyperlipdemia - Continue atorvastatin 10 mg daily. - Monitor LFTs 6. Anxiety and Depression - Continue home meds - Fall Precautions 7. UTI - Urine culture negative - Will discontinue Doxycycline 8. DVT Prophylaxis - SCDs - Lovenox SQ 9. Pulmonary nodule 5 mm left lobe Follow up CT scan in 6 months. 10. Acute left 5th/6th rib fracture. Could be the cause of chest pain if acs ruled out. tylenol prn.
[2017-03-03] MEDS ORDERED: PNEUMOC 13-VAL CONJ-DIP CRM/PF 0.5 ML DISP.SYRIN IM ONE (17:00)
[2017-03-03] MEDS: ATORVASTATIN CA 10 MG TABLET (FP) PO SCH (22:20)
[2017-03-04 07:35] LABS: BASOPHIL 0.6 % (0-2.0); EOSINOPHIL 0.7 % (0-4.5); MCH 28.4 pg (25.7-33.7); MCHC 32.3 g/dl (32.0-35.9); MEAN CELL VOLUME 87.8 fl (80-96); MEAN PLT VOLUME 9.2 fl (7.5-11.1); NEUTROPHILS 51.4 % (42.8-82.8); PLATELET COUNT 129 K/MM3 (134-434); RDW 14.9 % (11.9-15.9)
[2017-03-04 07:42] LABS: ALBUMIN 2.9 g/dl (3.4-5.0); ANION GAP 10 (8-16); CALCIUM 8.8 mg/dL (8.5-10.1); CO2 26 mmol/L (21-32); GLUCOSE,RANDOM 150 mg/dL (74-106)
[2017-03-04 07:48] LABS: ALK PHOS 278 U/L (45-117); BILIRUBIN,TOTAL 0.9 mg/dL (0.2-1.0); CHOLESTEROL 152 mg/dL (50-200); CREATININE 0.8 mg/dL (0.7-1.3); SGOT/AST 65 U/L (15-37); SGPT/ALT 50 U/L (12-78)
[2017-03-04 08:02] LABS: LDL CHOLESTEROL (ONLY SJRH) 88 mg/dL (5-100)
--- NOTE | 2017-03-04 08:56 | PN ---
Progress Note (short form) - Note Progress Note: Patient seen and examined. Restless, anxious at times. Denies shortness of breath, palpitation or dizziness. Not in respiratory distress PAST MEDICAL HISTORY: See HPI PAST SURGICAL HISTORY: Social History: Smoking: Unknown Alcohol: Unknown Drugs: Unknown Resides at [facility] Family History: Unable to obtain Allergies No Known Allergies Allergy (Verified 03/01/17 11:38) HOME MEDICATIONS: Home Medications Medication Instructions Recorded Aspirin [ASA -] 81 mg PO DAILY 03/01/17 Bacitracin 28 gm TP BID 03/01/17 Carvedilol 12.5 mg PO DAILY 03/01/17 Citalopram Hydrobromide [Celexa -] 10 mg PO DAILY 03/01/17 Doxycycline Hyclate 100 mg PO BID 03/01/17 Furosemide [Lasix -] 40 mg PO DAILY 03/01/17 Insulin Glargine,Hum.rec.anlog 14 units SQ HS 03/01/17 [Lantus Solostar PEN (NF)] Insulin Lispro [Humalog] 0 unit SQ ASDIR 03/01/17 Lorazepam [Ativan] 0.5 mg PO TID 03/01/17 Losartan Potassium 25 mg PO DAILY 03/01/17 Metformin HCl 500 mg PO BID 03/01/17 Nitroglycerin [Nitrostat] 0.4 mg SL ASDIR PRN 03/01/17 Pantoprazole Sodium [Protonix -] 20 mg PO DAILY 03/01/17 Quetiapine Fumarate [Seroquel -] 25 mg PO BID 03/01/17 Sitagliptin Phosphate [Januvia] 100 mg PO DAILY 03/01/17 Spironolactone 25 mg PO DAILY 03/01/17 Vitamin B Comp W-C [Nephro-Bernardo -] 1 tablet PO DAILY 03/01/17 REVIEW OF SYSTEMS Unable to perform CONSTITUTIONAL: Absent: fever, chills, diaphoresis, generalized weakness, malaise, loss of appetite, weight change HEENT: Absent: rhinorrhea, nasal congestion, throat pain, throat swelling, difficulty swallowing, mouth swelling, ear pain, eye pain, visual changes CARDIOVASCULAR: Absent: chest pain, syncope, palpitations, irregular heart rate, lightheadedness , peripheral edema RESPIRATORY: Absent: cough, shortness of breath, dyspnea with exertion, orthopnea, wheezing, stridor, hemoptysis GASTROINTESTINAL: Absent: abdominal pain, abdominal distension, nausea, vomiting, diarrhea, constipation, melena, hematochezia GENITOURINARY: Absent: dysuria, frequency, urgency, hesitancy, hematuria, flank pain, genital pain MUSCULOSKELETAL: Absent: myalgia, arthralgia, joint swelling, back pain, neck pain SKIN: Absent: rash, itching, pallor HEMATOLOGIC/IMMUNOLOGIC: Absent: easy bleeding, easy bruising, lymphadenopathy, frequent infections ENDOCRINE: Absent: unexplained weight gain, unexplained weight loss, heat intolerance, cold intolerance NEUROLOGIC: Absent: headache, focal weakness or paresthesias, dizziness, unsteady gait, seizure, mental status changes, bladder or bowel incontinence PSYCHIATRIC: Absent: anxiety, depression, suicidal or homicidal ideation, hallucinations. PHYSICAL EXAMINATION Vital Signs Period Temp Pulse Resp BP Sys/Hoskins Pulse Ox Last 24 Hr 97.8 F-98.6 F 16-105 18-20 115-136/52-84 98-98 GENERAL: Lethargic, oriented to name only, in no acute distress. HEAD: Normal with no signs of trauma. EYES: Pupils equal, round and reactive to light, extraocular movements intact, sclera anicteric, conjunctiva clear. No lid lag. EARS, NOSE, THROAT: Ears normal, nares patent, oropharynx clear without exudates. Dry mucous membranes. NECK: Normal range of motion, supple without lymphadenopathy, JVD, or masses. LUNGS: Breath sounds equal, clear to auscultation bilaterally. No wheezes, and no crackles. No accessory muscle use. HEART: Regular rate and rhythm, normal S1 and S2 without murmur, rub or gallop. ABDOMEN: Soft, nontender, not distended, normoactive bowel sounds, no guarding, no rebound, no masses. No hepatomegaly or splenomegaly. MUSCULOSKELETAL: Normal range of motion at all joints. No bony deformities or tenderness. No CVA tenderness. UPPER EXTREMITIES: 2+ pulses, warm, well-perfused. No cyanosis. No clubbing. No peripheral edema. LOWER EXTREMITIES: 2+ pulses, warm, well-perfused. No calf tenderness. No peripheral edema. NEUROLOGICAL: Cranial nerves II-XII intact. Normal speech. Gait not observed. PSYCHIATRIC: Cooperative. Limited eye contact. Appropriate mood and affect. SKIN: Warm, dry, normal turgor, no rashes, normal capillary refill. scabbed lesions to lower legs noted CBC, BMP 03/04/17 05:25 Heart Score/ECG Review - ECG Intrepretation Comment:: 03/01/17 13:04 ECG obtained at 11:31 Normal sinus at 88 bpm. Possible left atrial enlargment, left ventricular hypertrophy with repolarization abnormality. - RADIOLOGY Chest X-Ray Result: Other (No acute pathology) Radiograph Interpretation: 03/01/17 13:51 [id number] RAD/CHEST X-RAY PORTABLE* Chest: Chest pain A single view the chest reveals scoliosis with convexity to the right, elevated left hemidiaphragm , unfolded ascending and descending aorta, normal justen and prominent heart. The lungs are clear. The angles are sharp. Acute chest process is not seen. There are no prior studies for comparison. Impression : No acute pathology. See discussion above. CTA: Left lateral 5th/6th acute fracture. 5 mm pulmonary nodule. ASSESSMENT/PLAN: This is a 71 y/o male with a PMHx of: HTN, CHF, HLD, DM, Depression, Anxiety. Placed in Tele Observation for Chest Pain r/o ACS for further evaluation of their emergent condition. Impression: 1. Chest Pain r/o ACS - Cardiac Monitoring - Serial Enzymes, sets x3 mildly elevated - Cardiology Consult appreciated - Continue Asa, BB with parameters - NTG prn - Echo- Normal LV function. - Further work up and plan as per cardiology. 2. Hypertension - Controlled - Continue home meds - Monitor renal function 3. CHF - Stable - Chest Xray- no acute pathology - BNP 4900, no avail data to compare - Continue Lasix - Monitor BMP - Monitor vitals - O2 prn 4. Diabetes Mellitus - BGMs - ISS - a1c 10.1 - Increase metformin 1000 mg BID. - Endocrinology consulted. 5. Hyperlipdemia - Continue atorvastatin 10 mg daily. - Monitor LFTs 6. Anxiety and Depression - Continue home meds - Fall Precautions 7. UTI - Urine culture negative - Will discontinue Doxycycline 8. DVT Prophylaxis - SCDs - Lovenox SQ 9. Pulmonary nodule 5 mm left lobe Follow up CT scan in 6 months. 10. Acute left 5th/6th rib fracture. Could be the cause of chest pain if acs ruled out. tylenol prn. Awaiting cardiology input.
[2017-03-04] MEDS ORDERED: PT OWN MED DRAWER 7, Y5N ONE (09:35)
[2017-03-04] MEDS: SPIRONOLACTONE 25 MG TABLET (FP) PO SCH (09:41)
[2017-03-04] MEDS: FUROSEMIDE 40 MG TABLET (FP) PO SCH (09:41)
[2017-03-04] MEDS: ASPIRIN 81 MG CHEWABLE TABLETS PO SCH (09:41)
[2017-03-04] MEDS: QUEtiapine FUMARATE 25 MG TABLET (FP) PO SCH (09:41)
[2017-03-04] MEDS: PANTOPRAZOLE 20 MG TABLET (FP) PO SCH (09:41)
[2017-03-04] MEDS: LOSARTAN POTASSIUM 25 MG TABLET PO SCH (09:41)
[2017-03-04] MEDS: CITALOPRAM HYDROBROMIDE 10 MG TABLET (FP) PO SCH (09:41)
[2017-03-04] MEDS: VITAMIN B COMP W-C 1 EA TABLET PO SCH (09:41)
[2017-03-04] MEDS: ENOXAPARIN NA (PORCINE) 40 MG/0.4 ML DISP.SYRIN SQ SCH (09:45)
[2017-03-04] MEDS: BACITRACIN 15 GM TUBE TOPICAL OINTMENT TP SCH (09:47)
[2017-03-04] MEDS ORDERED: CARVEDILOL 12.5 MG TABLET (FP) PO SCH (10:00)
--- NOTE | 2017-03-04 11:56 | CONSULT ---
Consult - text type - Consultation Consultation Note: Cardiology 71 y/o man with a past medical history of HTN, HLD, DM, CHF, Depression, Anxiety , Dementia (per [place] records). He presents to the ED from the [facility] for chest pain. Patient has Dementia and unable to provide HPI. PE: vitals stable febrile mild HTN normal cardio-pulmonary exam abdomen soft no leg edema Impression: Echo mild LV dysfn, mod AR troponins 0.6; 0.[address] depression T inversions acute coronary syndrome can not be ruled out, but to several medical-mental conditions, will treat medically, for CAD. No evidence of CHF, even though BNP raised Maybe mild ischemic vs non-ischemic cardiomyopathy. Rec: continue current meds, with mild diuresis He is cleared to transfer back to [place], with close cardiac follow-up
[2017-03-04] MEDS: INSULIN SLIDING SCALE (NOVOLOG) 1 VIAL SQ SCH ×2 (12:05→17:40)
[2017-03-04 14:45] VITALS: PULSE 91
[2017-03-04 15:10] VITALS: TEMP 98.2
[2017-03-04 15:20] VITALS: BP 115/59
--- NOTE | 2017-03-04 17:11 | DS ---
Physical Examination Vital Signs: Vital Signs Temperature 98.2 F 03/04/17 10:00 Pulse Rate 91 H 03/04/17 14:42 Respiratory Rate 18 03/04/17 15:19 Blood Pressure 115/59 03/04/17 15:19 O2 Sat by Pulse Oximetry (%) 100 03/04/17 10:00 Constitutional: Yes: Well Nourished, No Distress Eyes: Yes: Conjunctiva Clear, EOM Intact HENT: Yes: Atraumatic, Normocephalic Neck: Yes: Supple Cardiovascular: Yes: Regular Rate and Rhythm Respiratory: Yes: Regular Gastrointestinal: Yes: Normal Bowel Sounds, Soft Musculoskeletal: Yes: WNL Extremities: Yes: WNL Edema: No Peripheral Pulses WNL: Yes Labs: CBC, BMP 03/04/17 05:25 03/04/17 05:25 Discharge Summary Reason For Visit: CHEST PAIN IN ADULT Current Active Problems Anxiety (Acute) CHF (congestive heart failure) (Acute) Chest pain (Acute) Chest pain in adult (Acute) DVT prophylaxis (Acute) Depression (Acute) Diabetes mellitus (Acute) HLD (hyperlipidemia) (Acute) HTN (hypertension) (Acute) Hospital Course: 71 y/o man with a past medical history of HTN, HLD, DM, CHF, Depression, Anxiety , Dementia (per [place] records). He presents to the ED from the [facility] for chest pain. Patient was seen by bundles hanger for the same. According to bundles hanger, acute coronary syndrome can not be ruled out, but to several medical-mental conditions, will treat medically, for CAD. Maybe mild ischemic vs non-ischemic cardiomyopathy. No evidence of CHF, even though BNP raised. Advised to continue current treatment with mild diuresis. His CTA also picked up acute left rib 5th and 6th fracture. No intervention. Pain management with tylenol. Patient stabilized and is ready for discharge back to the hospital. He would need follow up with Dr. Gabriele Anderson within 2 weeks. Work up in the hospital - Echo mild LV dysfn, mod AR Troponins 0.6; 0.[address] depression T inversions. Condition: Fair - Instructions Referrals: Elgin Desouza MD [Primary Care Provider] - - Home Medications Comprehensive Discharge Medication List: Ambulatory Orders RX: Aspirin [ASA -] 81 mg PO DAILY 03/01/17 RX: Bacitracin 28 gm TP BID 03/01/17 RX: Citalopram Hydrobromide [Celexa -] 10 mg PO DAILY 03/01/17 RX: Furosemide [Lasix -] 40 mg PO DAILY 03/01/17 RX: Insulin Glargine,Hum.rec.anlog [Lantus Solostar PEN -] 14 units SQ HS RX: Insulin Lispro [Humalog Kwikpen U-100] 0 unit SQ ASDIR 03/01/17 RX: Losartan Potassium 25 mg PO DAILY 03/01/17 RX: Metformin HCl 500 mg PO BID 03/01/17 RX: Nitroglycerin [Nitrostat] 0.4 mg SL ASDIR PRN 03/01/17 RX: Pantoprazole Sodium [Protonix -] 20 mg PO DAILY 03/01/17 RX: Quetiapine Fumarate [Seroquel -] 25 mg PO Q12H 03/01/17 RX: Vitamin B Comp W-C [Nephro-Bernardo -] 1 tablet PO DAILY 03/01/17 RX: Atorvastatin Ca [Lipitor] 10 mg PO HS #30 tablet 03/04/17 RX: Bacitracin - [Bacitracin Topical Ointment -] 1 applic TP BID #60 tube RX: Carvedilol [Coreg -] 6.25 mg PO BID #60 tablet 03/04/17 RX: Enoxaparin [Lovenox -] 40 mg SQ DAILY #30 unit 03/04/17 RX: Insulin Sliding Scale [Novolog Vial Sliding Scale -] 1 vial SQ ACHS #1 units 03/04/17 RX: Metformin HCl [Glucophage -] 1,000 mg PO BID@0700,1630 #60 tablet 03/04/17 RX: Nitroglycerin Sublingual [Nitrostat -] 0.4 mg SL Q5M PRN #30 tab 03/04/17
[2017-03-04] MEDS: metFORMIN HCL 500 MG TABLET (FP) PO SCH ×2 (17:39→17:42)
[2017-03-04] MEDS ORDERED: CARVEDILOL 6.25 MG TABLET (FP) PO SCH (22:00)
== END 2017-03-04 18:10 ==
LOC: JER 11:20 → JERBED 03-02 00:57 → J4S 03-02 19:20
PROVIDERS: ADMIT Internal Medicine; ATTEND Internal Medicine
PROC: 3E033NZ Introduction of Analgesics, Hypnotics, Sedatives into Peripheral Vein, Percutaneous Approach (ICD-10-PCS; principal; 2017-03-02)
PROC: 3E0337Z Introduction of Electrolytic and Water Balance Substance into Peripheral Vein, Percutaneous Approach (ICD-10-PCS; 2017-03-02)
DX: R07.9 Chest pain, unspecified (principal); I10 Essential (primary) hypertension; I50.9 Heart failure, unspecified; E78.5 Hyperlipidemia, unspecified; E11.9 Type 2 diabetes mellitus without complications; F32.9 Major depressive disorder, single episode, unspecified; F41.9 Anxiety disorder, unspecified; K21.9 Gastro-esophageal reflux disease without esophagitis; Z79.4 Long term (current) use of insulin; Z79.82 Long term (current) use of aspirin; Z79.84 Long term (current) use of oral hypoglycemic drugs
CPT/HCPCS: 36415; 71010-TC; 71275-TC; 74175-TC; 80048; 80053; 80061; 81003; 82553; 83036; 83605; 83721; 83735; 83880; 84100; 84484; 85025; 85610; 86850; 86900; 86901; 87040; 87086; 93005; 93010; 93306-TC; 99285-25; G0378